=== PATIENT | female | born 1950 | race Caucasian/White ===

== ENCOUNTER 2017-05-05 15:00 | Outpatient (RCR) | payer MEDICARE, BC ==
[2017-02-05 15:52] VITALS: BP 122/70
[2017-02-05 15:54] VITALS: BP 122/72
--- NOTE | 2017-02-05 16:32 | CARDIAC REHAB PLAN OF CARE ---
Physician: Kari Thompson Patient is being seen: Roberto Alves Medical Diagnosis: CABG x 1, AVR Date of Initial Evaluation: February 05, 2017 SHORT TERM GOALS Short Term Goals Due Date: 03/08/17 Short Term Goals: 66 year old female, phase II patient comes to cardiac rehab after CABG x 1, and AVR on December 19, 2016. 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 Patient without cardiac history prior to identifying the heart murmur in May of 2016. Patient is 5'4" and 250 pounds with both knees replaced and her left shoulder rotator cuff repaired, but will be able to follow the cardiac rehab protocol for exercise. Patient will start into a 36 visit phase II program achieving at least 150 minutes of a moderate level of cardio exercise along with weight resistance exercise at least twice a week. Patient currently at a 10 pound limit to allow for healing time to the anterior chest. Short Term Goals Met: Short Term Goals Not Met Due To: [employer] GOALS Churn Driller Helper Goal Due Date: 04/08/17 Churn Driller Helper Goals: care home goals for the patient are to be consistent in reaching that recommended goal of 150 minutes each week of a moderate level of cardio exercise and weight resistance exercise at least twice a week. Patient will continue to make adjustments to dietary intake and follow a heart healthy diet with portion control to also allow for weight loss towards her healthy BMI max of 146 pounds. Churn Driller Helper Goals Met: Jail Goals Not Met Due To: PATIENT'S GOALS Patient Goals Due Date: 03/08/17 Patient Goals: Patient goals are to regain walking and exercise abilities and improve cardiac and overall health. Patient would like to remain active. Patient Goals Met: Patient Goals Not Met Due To: Cardiac Rehabilitation Plan of Care Comment: Cardiac rehab staff will monitor, record, and evaluate vitals, ECG, and exercise results to provide the best plan of care for the patient throughout the phase II program. CR staff will motivate and educate the patient during visits for rehab. VIOLET
[2017-02-17 16:30] VITALS: BP_SYST 122; BP_DIAS 66; BP_DIAS 72
[2017-02-19 16:23] VITALS: BP_SYST 120; BP_SYST 122; BP_DIAS 70; BP_DIAS 80
[2017-02-21 17:09] VITALS: BP 120/58
[2017-02-21 17:10] VITALS: BP 104/70
[2017-02-24 17:09] VITALS: BP 104/60
[2017-02-24 17:10] VITALS: BP 112/70
[2017-02-26 17:32] VITALS: BP 108/60
[2017-02-26 17:34] VITALS: BP 120/74
[2017-02-28 16:39] VITALS: BP 102/64
[2017-02-28 16:40] VITALS: BP 108/66
[2017-03-03 16:37] VITALS: BP 122/66
[2017-03-03 16:38] VITALS: BP 128/68
[2017-03-05 16:31] VITALS: BP 124/62
[2017-03-05 16:32] VITALS: BP 116/68
[2017-03-07 17:06] VITALS: BP 134/72
[2017-03-07 17:07] VITALS: BP 110/62
--- NOTE | 2017-03-07 18:17 | CARDIAC REHAB PLAN OF CARE ---
Physician: Kari Thompson RESOURCE MANAGEMENT SPECIALIST Patient is being seen: Roberto Alves Medical Diagnosis: CABG x 1, AVR Date of Initial Evaluation: 02/05/17 Date patient was last seen: SHORT TERM GOALS Short Term Goals Due Date: 04/07/17 Short Term Goals: 66 year old female, phase II patient comes to cardiac rehab after CABG x 1, and AVR on December 19, 2016. 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 Patient without cardiac history prior to identifying the heart murmur in May of 2016. Patient is 5'4" and 250 pounds with both knees replaced and her left shoulder rotator cuff repaired, but will be able to follow the cardiac rehab protocol for exercise. Patient will start into a 36 visit phase II program achieving at least 150 minutes of a moderate level of cardio exercise along with weight resistance exercise at least twice a week. Patient currently at a 10 pound limit to allow for healing time to the anterior chest. Short Term Goals Met: Patient has completed 10 visits for cardiac rehab and tolerates 37 minutes of cardio exercise on the NuStep averaging 3.5 METs. During exercise SPO2 levels are maintained in the 90's on room air and the cardiac/vascular sonographer shows a ST without ectopy and rates of 101-113. Short Term Goals Not Met Due To: PRISON GOALS Group Home Goal Due Date: 05/05/17 Industry Analyst Goals: penitentiary goals are to maintain that consistency of exercise each week by achieving 150 minutes of a moderate level of cardio exercise along with weight resistance at least twice a week. Patient will also adjust diet to heart healthy and with portion control that will allow for gradual weight loss of 1-2 pounds per week. Group Home Goals Met: Group Home Goals Not Met Due To: PATIENT'S GOALS Patient Goals Due Date: 04/07/17 Patient Goals: Patient goals are to improve cardiac and overall health with consistent exercise and a healthy diet. Patient would like to remain active. Patient Goals Met: Patient Goals Not Met Due To: Cardiac Rehabilitation Plan of Care Comment: Cardiac rehab staff will continue to monitor, record, and evaluate vitals, ECG, and exercise results to provide the best plan of care throughout the 36 visit phase II program. CR staff will educate and motivate the patient during visits for rehab. VIOLET
[2017-03-12 17:11] VITALS: BP 122/68
[2017-03-12 17:12] VITALS: BP 120/78
[2017-03-14 16:36] VITALS: BP_SYST 116; BP_SYST 118; BP_DIAS 70; BP_DIAS 78
[2017-03-17 16:39] VITALS: BP 120/78
[2017-03-17 16:40] VITALS: BP 115/68
[2017-03-19 16:46] VITALS: BP 136/66
[2017-03-19 16:47] VITALS: BP 118/66
[2017-03-21 16:27] VITALS: BP 106/62
[2017-03-21 16:28] VITALS: BP 108/62
[2017-03-24 16:34] VITALS: BP 128/62
[2017-03-24 16:35] VITALS: BP 112/68
[2017-03-26 18:02] VITALS: BP 120/76
[2017-03-26 18:03] VITALS: BP 120/78
[2017-03-28 16:36] VITALS: BP_SYST 118; BP_SYST 124; BP_DIAS 70; BP_DIAS 82
[2017-03-31 15:44] VITALS: BP 126/78
[2017-03-31 15:45] VITALS: BP 106/70
[2017-04-02 16:42] VITALS: BP 130/78
[2017-04-02 16:43] VITALS: BP 116/66
[2017-04-04 16:55] VITALS: BP 118/80
[2017-04-04 16:57] VITALS: BP 110/76
--- NOTE | 2017-04-07 17:35 | CARDIAC REHAB PLAN OF CARE ---
Physician: Jay BORJA Patient is being seen: Roberto Alves Medical Diagnosis: AVR, CABG x 1 Date of Initial Evaluation: 02/05/2017 SHORT TERM GOALS Short Term Goals Due Date: 05/05/17 Short Term Goals: 66 year old female, phase II patient comes to cardiac rehab after CABG x 1, and AVR on December 19, 2016. 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 Patient without cardiac history prior to identifying the heart murmur in May of 2016. Patient is 5'4" and 250 pounds with both knees replaced and her left shoulder rotator cuff repaired, but will be able to follow the cardiac rehab protocol for exercise. Patient will start into a 36 visit phase II program achieving at least 150 minutes of a moderate level of cardio exercise along with weight resistance exercise at least twice a week. Patient currently at a 10 pound limit to allow for healing time to the anterior chest. Short Term Goals Met: Patient has made 21 visits to Cardiac Rehab and tolerates up to 45 minutes of moderate level cardio exercise on the Nu-Step achieving 4.1 METs, followed by a 6 pound dumbbell upper body workout. During exercise SPO2 levels were maintained in the 90's with 1-2 liters of O2 and the monitoring engineer shows a ST without ectopy and rates of 102-111. Short Term Goals Not Met Due To: Weight loss goals have not been achieved most likely due to lack of exercise outside of cardiac rehab class and still not enough adjustments to a heart healthy diet and proper portions. SENIOR LIVING GOALS Superintendent Measurement Goal Due Date: 06/05/17 Superintendent Measurement Goals: superintendent marine oil terminal goals are to maintain a consistent minimum of 150 minutes each week of a moderate level of cardio exercise along with weight resistance exercise at least twice a week. Patient also needs to commit to a heart healthy diet with proper portions to allow for a healthy weight loss of 1-2 pounds towards her BMI max weight of 146 pounds. Assisted Goals Met: Superintendent Measurement Goals Not Met Due To: PATIENT'S GOALS Patient Goals Due Date: 05/05/17 Patient Goals: Patient goals remain to gain better cardiac and overall health with exercise and healthy foods. Patient wants to remain active and extend life. Patient Goals Met: Patient remains motivated by increases in duration and intensity of exercise. Patient Goals Not Met Due To: Cardiac Rehabilitation Plan of Care Comment: Cardiac rehab staff will continue to monitor, record, and evaluate vitals, ECG, and exercise results to provide the best plan of care for the patient throughout the 36 visit, phase II program. CR staff will educate and motivate the patient during visits for rehab. VIOLET
[2017-04-18 16:56] VITALS: BP 112/72
[2017-04-18 16:57] VITALS: BP 108/70
[2017-04-21 17:34] VITALS: BP 132/72
[2017-04-21 17:35] VITALS: BP 112/70
[2017-04-23 16:33] VITALS: BP 120/76
[2017-04-23 16:43] VITALS: BP 110/80
[2017-04-25 16:20] VITALS: BP_SYST 114; BP_SYST 116; BP_DIAS 60; BP_DIAS 68
[2017-04-28 16:11] VITALS: BP 120/82
[2017-04-28 16:12] VITALS: BP 100/58
[2017-04-30 16:26] VITALS: BP 126/78
[2017-04-30 16:27] VITALS: BP 110/70
[2017-05-02 17:23] VITALS: BP 132/80
[2017-05-02 17:24] VITALS: BP 110/72
[~2017-05-05 15:00] MED LIST: ASPI-715 PO; ATOR40TA24 PO; CALC-547 PO; DILT30TA35 PO; EXEN2VIA SQ; FLUT16SP19 NS; HYDR-2966 PO; LEV112 PO; LEV75 PO; LIS10 PO; MELO-149 PO; METF-1 PO; METO25TA23 PO; MONT10TA PO; MULT-1335 PO; NIAC1TBM PO; OMEG-11 PO; PER PO; PRE20 PO; SITA50TA7 PO; TRA50 PO; TRAM-420 PO; TRAM-545 PO; WARF5TAB23 PO; [UNRECOGNIZED DRUG - CODE] PO
[2017-05-05 17:13] VITALS: BP 122/78
[2017-05-05 17:14] VITALS: BP 94/60
--- NOTE | 2017-05-06 15:41 | CARDIAC REHAB PLAN OF CARE ---
Physician: HUONG Gandhi Patient is being seen: Roberto Alves Medical Diagnosis: CABG x 1, AVR Date of Initial Evaluation: 02/05/2017 SHORT TERM GOALS Short Term Goals Due Date: 06/06/17 Short Term Goals: 66 year old female, phase II patient comes to cardiac rehab after CABG x 1, and AVR on December 19, 2016. 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 Patient without cardiac history prior to identifying the heart murmur in May of 2016. Patient is 5'4" and 250 pounds with both knees replaced and her left shoulder rotator cuff repaired, but will be able to follow the cardiac rehab protocol for exercise. Patient will start into a 36 visit phase II program achieving at least 150 minutes of a moderate level of cardio exercise along with weight resistance exercise at least twice a week. Patient currently at a 10 pound limit to allow for healing time to the anterior chest. Short Term Goals Met: Patient has made 29 visits for cardiac rehab and tolerates up to 50 minutes of a moderate level of cardio exercise on the NuStep achieving 4.2 MET average, followed by weight resistance exercise. During exercise SPO2 is maintained in the 90's on 1-2 liters of O2 via cannula , and the groundwater monitoring technician shows a ST without ectopy and rates of 100-111. Short Term Goals Not Met Due To: Weight loss goals have not been achieved most likely due to a lack of exercise outside of cardiac rehab class and more adjustments needed towards a heart healthy diet plan with proper portions. [facility] GOALS [facility] Goal Due Date: 07/06/17 Physician Allergist Immunologist Goals: intermediate goals for the patient are to maintain that consistent cardio exercise achieving a minimum goal 150 minutes each week at moderate level along with weight resistance exercise at least twice a week. Patient also needs consistency with dietary goals and proper portions. Physician Allergist Immunologist Goals Met: Physician Allergist Immunologist Goals Not Met Due To: PATIENT'S GOALS Patient Goals Due Date: 06/06/17 Patient Goals: Patient goals are to gain better cardiac and overall health with proper exercise and dietary guidelines. Patient wants to remain active and extend life. Patient Goals Met: Patient remains motivate by increases in exercise duration and intensity levels. Patient Goals Not Met Due To: Cardiac Rehabilitation Plan of Care Comment: Cardiac rehab staff will continue to monitor, record, and evaluate vitals, ECG, and exercise results to provide the best plan of care throughout the remaining visits of the phase II program. CR staff will educate and motivate the patient during visits for rehab. VIOLET
== END 2017-05-06 ==
LOC: CARD 15:00
PROVIDERS: ATTEND Surgery Vascular Surgery
DX: I35.0 Nonrheumatic aortic (valve) stenosis (principal); Z95.1 Presence of aortocoronary bypass graft; Z96.653 Presence of artificial knee joint, bilateral; Z98.890 Other specified postprocedural states
CPT/HCPCS: 93798

== ENCOUNTER 2017-05-21 15:00 | Outpatient (RCR) | payer MEDICARE, BC ==
[2017-05-07 16:51] VITALS: BP 110/68
[2017-05-07 16:52] VITALS: BP 98/60
[2017-05-09 16:23] VITALS: BP 106/68
[2017-05-09 16:24] VITALS: BP 102/60
[2017-05-12 16:23] VITALS: BP_SYST 116; BP_SYST 120; BP_DIAS 60; BP_DIAS 76
[2017-05-14 16:32] VITALS: BP_SYST 115; BP_SYST 126; BP_DIAS 66; BP_DIAS 76
[2017-05-16 16:35] VITALS: BP 100/62
[2017-05-16 16:36] VITALS: BP 102/60
[2017-05-19 16:36] VITALS: BP 134/76
[2017-05-19 16:37] VITALS: BP 100/64
[2017-05-21 17:18] VITALS: BP 122/64
[2017-05-21 17:24] VITALS: BP 94/60
== END 2017-05-21 18:00 | disposition home or self-care (01) ==
LOC: CARD 15:00
PROVIDERS: ATTEND Surgery Vascular Surgery
DX: I35.0 Nonrheumatic aortic (valve) stenosis (principal); Z95.1 Presence of aortocoronary bypass graft; Z96.653 Presence of artificial knee joint, bilateral; Z98.890 Other specified postprocedural states
CPT/HCPCS: 93798

== ENCOUNTER → 2017-08-25 | Outpatient (CLI) | payer MEDICARE, BC ==
[2017-08-25 13:29] LABS: INR 2.71
== END ==
LOC: LAB 12:47
PROVIDERS: ATTEND Surgery Vascular Surgery
DX: Z51.81 Encounter for therapeutic drug level monitoring (principal); Z79.01 Long term (current) use of anticoagulants; Z95.2 Presence of prosthetic heart valve; I35.0 Nonrheumatic aortic (valve) stenosis
CPT/HCPCS: 36415; 85610

== ENCOUNTER → 2017-09-11 | Outpatient (CLI) | payer MEDICARE, BC ==
--- NOTE | 2017-09-11 15:00 | RADIOLOGY IMAGING REPORT ---
FACILITY: [facility] [place] PATIENT NAME: SABRINA CARSON : [id number] MR: [id number] V: [id number] EXAM DATE: ORDERING PHYSICIAN: TAWANA GAUTHIER TECHNOLOGIST: Neisha Holly PROCEDURE:BILATERAL DIGITAL SCREENING MAMMOGRAM WITH CAD ASSISTED INTERPRETATION & 3D TOMOSYNTHESIS COMPARISON:Prior mammograms 08/15/16, 07/20/15, 12/08/12. INDICATIONS:SCREENING FINDINGS: A small amount of fibroglandular tissue is seen throughout the breasts. The parenchymal pattern has remained stable allowing for difference in mammographic technique & patient positioning. There is no evidence of malignant appearing mass, malignant appearing calcifications or other secondary sign of malignancy in either breast. DIAGNOSTIC CATEGORY 1--NEGATIVE. RECOMMENDATIONS: ROUTINE MAMMOGRAM AND CLINICAL EVALUATION. IMPRESSION: BIRADS 1: Negative. No significant abnormality is seen. Dictated by: Tiara Dominguez M.D. on 09/11/2017 at 14:32 Transcribed by: GINA on 09/11/2017 at 14:46 Approved by: Tiara Dominguez M.D. on 09/11/2017 at 14:59 [facility]
== END ==
LOC: MAMO 02:21
PROVIDERS: ATTEND Nurse Practitioner Family
DX: Z12.31 Encounter for screening mammogram for malignant neoplasm of breast (principal)
CPT/HCPCS: 77063; 77067